=== PATIENT | male | born 1935 | race Caucasian/White ===

== ENCOUNTER 2021-06-04 10:37 | Inpatient (IN) | payer MEDICARE ==
[~2021-06-04] VITALS: Ht 175.3 cm; Wt 74.1 kg
[~2021-06-04 10:37] MED LIST: ARICEPT 5MG TABL5 MG PO; COLACE100 MG PO; LAXATIVE OF CHOICE; MIRALAX17 GM PO; PREVALITE4 GM PO; ULTRAM50 MG PO
[2021-06-04 12:10] LABS: BASOPHIL 0.7 % (0-2); EOSINOPHIL 2.6 % (0-7); HCT 37.1 % (42.0-52.0); HGB 12.3 g/dl (13.2-18.0); LYMPHOCYTE 16.3 % (15-48); MCH 30.4 pg (25.0-31.0); MCHC 33.2 g/dL (32.0-36.0); MCV 91.8 fL (78.0-100.0); MONOCYTE 14.5 % (0-12); MPV 9.4 fL (6.0-9.5); NEUTROPHIL 65.4 % (41-80); NRBC 0; PLT 253 K/uL (150-400); RBC 4.04 M/uL (4.70-6.00); RDW 13.8 % (11.5-14.0); WBC 5.9 K/uL (4.0-10.5)
[2021-06-04 12:14] LABS: ALBUMIN 3.4 g/dL (3.4-5.0); BILIRUBIN - TOTAL 0.7 mg/dL (0.2-1.0); BUN/CREAT RATIO (CALC) 9.5 RATIO; CREATININE 1.68 mg/dL (0.67-1.17); GLOBULIN (CALCULATION) 4.9 g/dL; POTASSIUM 3.4 mmol/L (3.5-5.1); TOTAL PROTEIN 8.3 g/dL (6.4-8.2)
[2021-06-04 15:03] LABS: BILIRUBIN NEGATIVE (NEGATIVE); BLOOD 1+ Ery/uL (NEGATIVE); CLARITY CLEAR (CLEAR); COLOR YELLOW (YELLOW); GLUCOSE (U) NORMAL (NORMAL); LEUKOCYTES NEGATIVE Leu/uL (NEGATIVE); NITRITE NEGATIVE (NEGATIVE); PROTEIN NEGATIVE (NEGATIVE); SPECIFIC GRAVITY 1.015 (1.001-1.030); UROBILINOGEN 0.2 mg/dL (0.2-1.0); pH 6.5 (5.0-9.0)
[2021-06-04 15:16] LABS: BACTERIA TRACE
[2021-06-04 15:17] LABS: SQUAMOUS EPITHELIAL CELLS RARE
[2021-06-04 17:16] LABS: CORONAVIRUS 2019 SARS-COV-2 NEGATIVE (NEGATIVE); INFLUENZA A NAA NEGATIVE (NEGATIVE)
[2021-06-05 03:58] LABS: BASOPHIL 0.8 % (0-2); EOSINOPHIL 2.9 % (0-7); HCT 35.1 % (42.0-52.0); HGB 11.7 g/dl (13.2-18.0); LYMPHOCYTE 20.9 % (15-48); MCH 30.5 pg (25.0-31.0); MCHC 33.3 g/dL (32.0-36.0); MCV 91.6 fL (78.0-100.0); MONOCYTE 13.4 % (0-12); NEUTROPHIL 61.5 % (41-80); NRBC 0; PLT 231 K/uL (150-400); RBC 3.83 M/uL (4.70-6.00); RDW 13.9 % (11.5-14.0); WBC 6.5 K/uL (4.0-10.5)
[2021-06-05 04:09] LABS: BUN/CREAT RATIO (CALC) 9.9 RATIO; CREATININE 1.61 mg/dL (0.67-1.17); POTASSIUM 3.6 mmol/L (3.5-5.1)
[2021-06-05 20:34] LABS: RETICULOCYTE COUNT 1.3 % (1.0-2.0)
[2021-06-05 21:11] LABS: IRON % SATURATION 37.8 %SAT (20-50)
[2021-06-05 21:18] LABS: FT4 (FREE T4) 0.9 ng/dL (0.76-1.46)
[2021-06-06 07:06] LABS: BASOPHIL 0.9 % (0-2); EOSINOPHIL 4.5 % (0-7); HCT 31.2 % (42.0-52.0); HGB 10.4 g/dl (13.2-18.0); LYMPHOCYTE 22.9 % (15-48); MCH 30.1 pg (25.0-31.0); MCHC 33.3 g/dL (32.0-36.0); MCV 90.4 fL (78.0-100.0); MONOCYTE 17.2 % (0-12); MPV 9.2 fL (6.0-9.5); NEUTROPHIL 54.3 % (41-80); NRBC 0; PLT 190 K/uL (150-400); RBC 3.45 M/uL (4.70-6.00); RDW 13.8 % (11.5-14.0); WBC 5.8 K/uL (4.0-10.5)
[2021-06-06 07:32] LABS: BUN/CREAT RATIO (CALC) 8.8 RATIO; CREATININE 1.59 mg/dL (0.67-1.17); MAGNESIUM 1.3 mg/dL (1.8-2.4); PHOSPHORUS 2.8 mg/dL (2.6-4.7); POTASSIUM 3.2 mmol/L (3.5-5.1)
--- NOTE | 2021-06-06 14:51 | NUR ---
MET WITH PT AND SPOUSE. PT. HAS A CANE. [facility] TO DELIVER A RO[facility] WALKER AND [facility] WILL PROVIDE HH SERVICES. INFO SENT TO [facility] AND [facility].
[2021-06-06 17:11] LABS: CALCIUM, SERUM 12.2 mg/dL (8.6-10.2); PTH, INTACT 8 pg/mL (15-65)
[2021-06-07 06:59] LABS: BASOPHIL 0.8 % (0-2); EOSINOPHIL 3.2 % (0-7); LYMPHOCYTE 28.9 % (15-48); MCH 30.3 pg (25.0-31.0); MCHC 33.3 g/dL (32.0-36.0); MCV 90.9 fL (78.0-100.0); MONOCYTE 14.4 % (0-12); MPV 9.1 fL (6.0-9.5); NEUTROPHIL 52.5 % (41-80); NRBC 0; PLT 198 K/uL (150-400); RBC 3.63 M/uL (4.70-6.00); WBC 6.3 K/uL (4.0-10.5)
[2021-06-07 07:24] LABS: BUN/CREAT RATIO (CALC) 9.4 RATIO; CREATININE 1.6 mg/dL (0.67-1.17); POTASSIUM 3.3 mmol/L (3.5-5.1)
[2021-06-07 07:25] LABS: MAGNESIUM 2.1 mg/dL (1.8-2.4)
[2021-06-08 07:21] LABS: BASOPHIL 0.7 % (0-2); EOSINOPHIL 1.7 % (0-7); HCT 34.1 % (42.0-52.0); HGB 11.2 g/dl (13.2-18.0); LYMPHOCYTE 26.2 % (15-48); MCH 29.8 pg (25.0-31.0); MCHC 32.8 g/dL (32.0-36.0); MCV 90.7 fL (78.0-100.0); MONOCYTE 14.4 % (0-12); MPV 9.2 fL (6.0-9.5); NEUTROPHIL 56.7 % (41-80); NRBC 0; PLT 216 K/uL (150-400); RBC 3.76 M/uL (4.70-6.00); RDW 14.3 % (11.5-14.0)
[2021-06-08 07:39] LABS: BUN/CREAT RATIO (CALC) 8.4 RATIO; CREATININE 1.54 mg/dL (0.67-1.17); MAGNESIUM 1.9 mg/dL (1.8-2.4); POTASSIUM 3.4 mmol/L (3.5-5.1)
[2021-06-08] MEDS ORDERED: FOSAMAX70 MG PO (15:21)
--- NOTE | 2021-06-08 15:22 | NUR ---
[facility] INFORMED OF PATIENT GOING HOME TODAY
[2021-06-08] MEDS ORDERED: ASPIRIN325 MG PO (15:54)
[2021-06-09 13:08] LABS: A/G RATIO 0.8 (0.7-1.7); ALPHA-1-GLOBULIN 0.3 g/dL (0.0-0.4); ALPHA-2-GLOBULIN 0.8 g/dL (0.4-1.0); GAMMA GLOBULIN 1.7 g/dL (0.4-1.8); GLOBULIN, TOTAL 3.8 g/dL (2.2-3.9); M-SPIKE Not Observed g/dL (Not Observed); PROTEIN, TOTAL, SERUM 6.8 g/dL (6.0-8.5)
== END 2021-06-08 15:45 | disposition home health service (06) | DRG 640 ==
LOC: FER 10:37 → FMS 15:58
PROVIDERS: Emergency Medicine; Nurse Practitioner Acute Care; ADMIT Internal Medicine
DX: E83.52 Hypercalcemia (principal); G93.41 Metabolic encephalopathy; N17.9 Acute kidney failure, unspecified; I82.813 Embolism and thrombosis of superficial veins of lower extremities, bilateral; Z20.822 Contact with and (suspected) exposure to COVID-19; Z66 Do not resuscitate; G30.9 Alzheimer's disease, unspecified; F02.80 Dementia in other diseases classified elsewhere, unspecified severity, without behavioral disturbance, psychotic disturbance, mood disturbance, and anxiety; E86.0 Dehydration; E87.6 Hypokalemia; C67.9 Malignant neoplasm of bladder, unspecified; J42 Unspecified chronic bronchitis; E78.5 Hyperlipidemia, unspecified; R01.1 Cardiac murmur, unspecified; R29.6 Repeated falls; Z85.46 Personal history of malignant neoplasm of prostate; Z88.0 Allergy status to penicillin; Z87.442 Personal history of urinary calculi; Z98.890 Other specified postprocedural states; Z92.3 Personal history of irradiation; Z79.82 Long term (current) use of aspirin; Z79.899 Other long term (current) drug therapy
CPT/HCPCS: 36415; 70450; 71045; 71250; 73630; 78306; 80048; 80053; 81001; 82306; 82310; 82378; 82607; 82652; 83540; 83550; 83735; 83880; 83970; 84100; 84155; 84165; 84439; 84443; 84484; 85025; 85379; 93005; 93970; 97162; 97166; 97530-GP; 97535; J0630; J1650; J3475; J3489; J7030; J7050; Q5106; U0002